=== PATIENT | female | born 1990 | race African-American/Black ===

== ENCOUNTER 2018-06-05 14:36 | Inpatient (IN) | payer SELFPAY ==
[2018-06-05 15:29] LABS: Hemoglobin 5.2 g/dL (12.0-16.0); Mean Corpuscular HGB CONC 29.7 g/dL (32.0-36.0); Mean Corpuscular Volume 60.5 fL (78.0-98.0); Mean Platelet Volume 10.4 fL (7.4-10.4); Platelet Count 356 thou/uL (130-400); RBC Distribution Width 16.5 % (11.5-14.5); White Blood Cell (WBC) Count 4.1 thou/uL (4.8-10.8)
[2018-06-05 15:47] LABS: #Basophils 0.1 thou/uL (0.0-0.2); #Eosinphils 0.1 thou/uL (0.0-0.7); #Lymphocytes 1.3 thou/uL (1.20-3.40); #Monocytes 0.4 thou/uL (0.11-0.59); #Neutrophils 2.2 thou/uL (1.40-6.50); %Basophils 2.4 % (0.0-1.0); %Eosinophils 1.7 % (0.0-10.0); %Lymphocytes 32.3 % (21.0-51.0); %Monocytes 10.6 % (0.0-10.0); Anisocytosis SLIGHT = 6-15 cells (100X) (0-5/hpf); Elliptocytes SLIGHT = 2-5 cells (100X) (0-1/hpf); Hypochromia SLIGHT = 6-15 cells (100X) (0-5/hpf); MDiff Complete? YES; Microcytosis MODERATE=15-30 cells (100X) (0-5/hpf); Platelet Morphology Comment Appears Adequate; Poikilocytosis SLIGHT = 6-15 cells (100X) (0-5/hpf); Polychromasia SLIGHT = 2-3 cells (100X) (0-2/hpf)
[2018-06-05 15:48] LABS: ALT (SGPT) 10 U/L (8-55); AST (SGOT) 18 U/L (5-34); Alkaline Phosphatase 64 U/L (40-150); Anion Gap 11 mmol/L (10-20); BUN (Urea Nitrogen) 6 mg/dL (7.0-18.7); Bilirubin, Total 0.3 mg/dL (0.2-1.2); Calc. Creatinine Clearance 0 mL/min (70-130); Calcium 9.2 mg/dL (7.8-10.44); Carbon Dioxide 27 mmol/L (22-29); Chloride 106 mmol/L (98-107); Estimated GFR-MDRD 90; Globulin 2.9 g/dL (2.4-3.5); Glucose 94 mg/dL (70-105); Potassium 3.9 mmol/L (3.5-5.1); Protein, Total 6.9 g/dL (6.0-8.3); Sodium 140 mmol/L (136-145)
[2018-06-05] MEDS ORDERED: Ondansetron ODT 4 MG TAB PO PRN (16:12)
[2018-06-05] MEDS ORDERED: Ondansetron PF 4 MG/2 ML Vial IVP PRN (16:12)
[2018-06-05] MEDS ORDERED: Acetaminophen 325 MG TAB PO PRN (16:12)
[2018-06-05] MEDS ORDERED: Zolpidem Tartrate 5 MG TAB PO PRN (16:12)
[2018-06-05 17:06] LABS: Bilirubin Negative (Negative); Blood, Urine Negative (Negative); Clarity CLEAR (Clear); Glucose, Urine (Dipstick) Negative (Negative); Leukocyte Negative (Negative); Nitrite Negative (Negative); Protein, Urine (Dipstick) Negative (Neg-Trace); Specific Gravity, Urine 1.018 (1.002-1.036); Urobilinogen 0.2 mg/dL (0.2-1.0)
[2018-06-05 17:09] LABS: Pregnancy Test - Urine (BHCG) Negative (Negative); Pregu Control Background? CLEAR/WHITE (CLR/WHITE); Pregu Control Bar Appear? YES (CONTROL BAR); Specific Gravity 1.018 (1.002-1.036)
--- NOTE | 2018-06-05 17:10 | ULT ---
TRANSABDOMINAL AND ENDOVAGINAL PELVIC ULTRASOUND: 06/05/18 HISTORY: Menorrhagia. Heavy bleeding. LMP 04/15/18. Patient has not been sexually active since bleeding began. Patient is not on any control. COMPARISON: None. TECHNIQUE: Transabdominal and endovaginal imaging of the pelvis is performed. Ovaries are interrogated with segovia scale, color flow, doppler imaging and spectral waveform analysis. FINDINGS: Uterus is identified measuring 4.8 x 4.1 x 7.8 cm. No myometrial masses. Heterogeneous, thickened en dometrium measuring 1.3 cm. There is no evidence of a gestational sac, yolk sac or pole. Naboth marie cyst is noted. Right ovary has a normal echotexture with a follicle present, measuring 1 cm. Overall, the right ovar y measures 1.9 x 2.0 x 1.2 cm. There are multiple cysts in the left ovary. The largest cyst may have a fluid debris fill level measu ring 2.9 x 1.4 x 2.2 cm. Second smaller cyst measures 1.3 x 1.3 x 1.5 cm. Overall, the left ovary adam sures 2.7 x 3.3 x 3.4 cm. There is no free fluid. OVARIAN DOPPLER: Vascular flow to both ovaries. IMPRESSION: 1. Heterogeneous, thickened endometrium. No sonographic evidence of a gestational sac, yolk sac or pole. Correlate with serum beta HCG. 2. Bilateral ovarian cyst. Largest cyst in the left ovary is slightly complex. Followup ultrasou nd in 8 weeks is recommended to ensure resolution. POS: DEEDEE
[2018-06-05 18:03] LABS: BHCG - Serum Negative (NEGATIVE); Pregs Control Background? CLEAR/WHITE (CLR/WHITE); Pregs Control Bar Appear? YES (CONTROL BAR)
[2018-06-05] MEDS: Famotidine 20 MG TAB PO SCH (20:46)
--- NOTE | 2018-06-06 02:30 | HP ---
CHIEF COMPLAINT: Vaginal bleeding and symptomatic anemia. HISTORY OF PRESENT ILLNESS: This is a 27-year-old nulligravid female who presented to the emergency department with weakness and dizziness. She reports that she has irregular cycles and very heavy cycles. She was bleeding heavily yesterday, but this is improved today. However, due to her symptoms of dizziness, she decided to come in and be evaluated. She has been evaluated for this before and started on control pills, but did not like the side effects and stopped taking them. She has not ever needed a blood transfusion prior to this. REVIEW OF SYSTEMS: Negative for head, eyes, ears, nose, throat, cardiovascular, respiratory, GI, , neuro, psych, musculoskeletal, skin, or constitutional symptoms other than mentioned above. PAST MEDICAL HISTORY: None. PAST SURGICAL HISTORY: None. MEDICATIONS: None. ALLERGIES: NO KNOWN DRUG ALLERGIES. SOCIAL HISTORY: Negative for tobacco, alcohol, or drug abuse. 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 FAMILY HISTORY: Negative for breast, ovary, uterine, or colon cancer. PHYSICAL EXAMINATION: VITAL SIGNS: Blood pressure 118/59, pulse 88, respiratory rate 16, temperature 98.3, O2 saturation 98% on room air. GENERAL: Awake, alert, in no acute distress. CHEST: Nonlabored breathing. ABDOMEN: Soft, nontender to palpation. PELVIC: Deferred. LABORATORY DATA: Hemoglobin 5.2, hematocrit 17.6. test negative. Labs otherwise unremarkable. IMAGING: Transvaginal ultrasound performed by Radiology revealing a heterogeneous thickened endometrium measuring 1.3 cm, bilateral ovarian cyst, largest is 2.9 cm. No free fluid in the pelvis. ASSESSMENT AND PLAN: A 27-year-old nulligravid female with abnormal uterine bleeding and symptomatic anemia. The patient will be admitted for transfusion of blood products. Following this, she will be discharged to follow up at the [facility] for further workup and management. I did start her on Provera 10 mg daily to be started now and taken until she is seen in the clinic. Job ID: [id number] MTDD
[2018-06-06 07:59] VITALS: TEMP 98.1
[2018-06-06] MEDS: Famotidine 20 MG TAB PO SCH (08:33)
[2018-06-06 08:35] LABS: Hemoglobin 7.5 g/dL (12.0-16.0); Mean Corpuscular HGB CONC 31.6 g/dL (32.0-36.0); Mean Corpuscular Hemoglobin 21.6 pg (27.0-31.0); Mean Corpuscular Volume 68.3 fL (78.0-98.0); Mean Platelet Volume 9.7 fL (7.4-10.4); Platelet Count 357 thou/uL (130-400); RBC Distribution Width 24.2 % (11.5-14.5); White Blood Cell (WBC) Count 4.3 thou/uL (4.8-10.8)
[2018-06-06] MEDS ORDERED: medroxyPROGESTERone Acetate 5 MG TAB PO SCH (09:00)
--- NOTE | 2018-06-06 09:52 | PDOC.EVN ---
Event Note - Event Note Event Note: Now s/p 2 units PRBCs BP= 122/76, P= 78. Hgb returns 7.5. Has Dc orders by Dr. Lennon, rx. for Fe and Provera on chart. Has referral to [facility] for followup.
[2018-06-06 12:01] VITALS: BP 139/78
--- NOTE | 2018-06-07 23:37 | DIS ---
DATE OF ADMISSION: 06/05/2018 DATE OF DISCHARGE: 06/06/2018 DIAGNOSES: 1. Abnormal uterine bleeding. 2. Symptomatic anemia. PROCEDURES: 1. Transfusion of 2 units packed red blood cells. 2. Transvaginal Ultrasound HOSPITAL COURSE: The patient presented to the emergency department for dizziness with a longstanding history of abnormal uterine bleeding. She has moderate bleeding at this time. She has never required transfusions prior to this. She received 2 units of packed red blood cells with improvement of her symptoms. Her hemoglobin improved from 5.2 to 7.5, and she was discharged home. DISCHARGE MEDICATIONS: Provera 10 mg daily for 10 days. FOLLOWUP: [facility] for further evaluation and management. DIET: Regular. ACTIVITIES: As tolerated. INSTRUCTIONS: Call or return to clinic as needed. Job ID: [id number] MTDD
== END 2018-06-06 11:20 | disposition home or self-care (01) | DRG 761 ==
LOC: ERS 14:36 → 3SE 16:12
PROVIDERS: ADMIT Obstetrics & Gynecology; ATTEND Obstetrics & Gynecology
PROC: 30233N1 Transfusion of Nonautologous Red Blood Cells into Peripheral Vein, Percutaneous Approach (ICD-10-PCS; principal; 2018-06-05)
DX: N93.9 Abnormal uterine and vaginal bleeding, unspecified (principal); D64.9 Anemia, unspecified; N83.202 Unspecified ovarian cyst, left side; N83.201 Unspecified ovarian cyst, right side; R93.89 Abnormal findings on diagnostic imaging of other specified body structures
CPT/HCPCS: 36415; 36430; 76856; 80053; 81003; 81025; 84703; 85025; 85027; 85060; 86850; 86900; 86901; 96360; P9016

== ENCOUNTER 2018-07-03 10:31 | Observation (INO) | payer SELFPAY ==
[2018-07-03 11:13] LABS: #Basophils 0.1 thou/uL (0.0-0.2); #Eosinphils 0.1 thou/uL (0.0-0.7); #Lymphocytes 1.3 thou/uL (1.20-3.40); #Monocytes 0.3 thou/uL (0.11-0.59); #Neutrophils 3.7 thou/uL (1.40-6.50); %Basophils 1.8 % (0.0-1.0); %Lymphocytes 23.8 % (21.0-51.0); %Monocytes 6.3 % (0.0-10.0); %Neutrophils 67.1 % (42.0-75.0); Hemoglobin 6.6 g/dL (12.0-16.0); Mean Corpuscular HGB CONC 30.3 g/dL (32.0-36.0); Mean Corpuscular Volume 66.1 fL (78.0-98.0); RBC Distribution Width 22.1 % (11.5-14.5); Red Blood Cell (RBC) Count 3.32 mill/uL (4.20-5.40); White Blood Cell (WBC) Count 5.4 thou/uL (4.8-10.8)
[2018-07-03 11:37] LABS: Elliptocytes SLIGHT = 2-5 cells (100X) (0-1/hpf); Hypochromia MODERATE=16-30 cells (100X) (0-5/hpf); MDiff Complete? YES; Mean Platelet Volume 10.5 fL (7.4-10.4); Microcytosis MODERATE=15-30 cells (100X) (0-5/hpf); Platelet Count 341 thou/uL (130-400); Platelet Morphology Comment Appears Adequate; Polychromasia SLIGHT = 2-3 cells (100X) (0-2/hpf); Schistocytes SLIGHT = 2-5 cells (100X) (0-1/hpf); Tear Drops SLIGHT = 2-5 cells (100X) (0-1/hpf)
--- NOTE | 2018-07-03 13:32 | PDOC.FPRHP ---
- History of Present Illness Chief Complaint: Fatigue History of Present Illness: 27 year old female presents for fatigue. Patient has history of abnormal uterine bleeding. She was seen by Dr. Lennon at clinic this AM. Her bleeding has slowed down, so no measures were taken at that visit. Patient states that she felt very fatigued which is similar to how she felt during the last hospitalization less than a month ago when she was seen for the same problem. She required blood transfusion at that time. She opted to come to the ED for evaluation and to get her blood count checked. Patient states she has had prolonged bleeding since just after starting menses. She was on BC pills to regulate periods from 2004 through 2012. She opted to come off of control due to weight changes and problems with BP. She did not get put on medication after that point, although options have been discussed with her to include Mirena IUD. Patient states she has been bleeding from end of May until now. Even with the Provera, the bleeding has persisted, but it has lessened. She states she goes through appx 5 pads a day, but it will vary. She denies any family history of bleeding disorders. Patient states that other than the vaginal bleeding, she has not experienced any problems with bleeding. During the last hospitalization, patient had TVUS which showed heterogeneous, thickened endometrium. There was no sonographic evidence of a gestational sac, yolk sac or pole. There were noted to be bilateral ovarian cysts. The largest cyst in the left ovary is slightly complex. Follow up ultrasound in 8 weeks was recommended. Patient was admitted for blood transfusion and discharged on Provera 10 mg daily until her follow up appt with [facility]. - Allergies/Adverse Reactions Allergies Allergy/AdvReac Type Severity Reaction Status Date / Time No Known Allergies Allergy Verified 07/03/18 14:59 - Home Medications Medication Instructions Recorded Confirmed Type medroxyPROGESTERone Acetate 10 mg PO DAILY 10 Days #30 tab 06/06/18 07/03/18 Rx [Provera] - History PMHx: Abnormal uterine bleeding PSHx: None FHx: Negative for breast, ovary, uterine, or colon cancer. Denies family history of bleeding or clotting disorders. Social: Denies tobacco, alcohol, or drug use. 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 - Review of Systems General: denies: fever/chills, weight/appetite/sleep changes Eyes: denies: vision changes ENT: denies: nasal congestion, rhinorrhea Respiratory: reports: shortness of breath (with exertion). denies: cough, congestion Cardiovascular: denies: chest pain, palpitation, edema Gastrointestinal: denies: nausea, vomiting, diarrhea, abdominal pain Genitourinary: denies: dysuria, polyuria Skin: denies: rashes, lesions Musculoskeletal: denies: pain, tenderness Neurological: reports: weakness. denies: numbness, syncope Psychological: denies: anxiety, depression - Vital signs BP: 127/80 HR: 74 RR: 16 Tmax: 98.6F - Physical Exam Constitutional: NAD, awake, alert and oriented, well developed HEENT: EOMI, grossly normal vision, grossly normal hearing Neck: supple -Neck: Pale conjunctiva Heart: RRR, normal S1/S2, no murmurs/rubs/gallops Lungs: CTAB, no respiratory distress, no wheezing Abdomen: soft, non-tender, bowel sounds present Musculoskeletal: normal tone, ROM grossly normal Neurological: no focal deficit, CN II-XII intact Skin: no rash/lesions, good turgor, capillary refill <2 seconds Heme/Lymphatic: no purpura, no petechia Psychiatric: normal mood and affect, good judgment and insight, intact recent and remote memory FMR H&P: Results - Labs Result Diagrams: 07/04/18 04:31 Lab results: WBC 5.4 thou/uL (4.8-10.8) 07/03/18 10:55 Hgb 6.6 g/dL (12.0-16.0) L 07/03/18 10:55 Hct 21.9 % (36.0-47.0) L 07/03/18 10:55 MCV 66.1 fL (78.0-98.0) L 07/03/18 10:55 Plt Count 341 thou/uL (130-400) 07/03/18 10:55 Neutrophils % 67.1 % (42.0-75.0) 07/03/18 10:55 FMR H&P: A/P - Problem List (1) Abnormal uterine bleeding (AUB) Current Visit: No Status: Acute Code(s): N93.9 - ABNORMAL UTERINE AND VAGINAL BLEEDING, UNSPECIFIED (2) Symptomatic anemia Current Visit: No Status: Acute Code(s): D64.9 - ANEMIA, UNSPECIFIED - Plan 27 year old female with hx AUB presents with fatigue and weakness 1. Symptomatic anemia - 2/2 AUB, associated with weakness, fatigue, exertional dyspnea - Provera 10 mg BID - 2u pRBC's - AM CBC - Monitor for additional signs/symptoms of anemia 2. AUB - Since menses - Will evaluate for underlying bleeding disorder to include VWD - Recommend OCP's or IUD; patient will need to follow up with her JUNIOR DATABASE ADMINISTRATOR within the next week. - TVUS on 06/2018 showed heterogeneous, thickened endometrium with no evidence of gestational sac, yolk sac, or pole. Bilateral ovarian cysts were noted. Largest cyst was in left ovary and was noted to be slightly complex. 8 week follow up was recommended. 3. Ovarian cysts - Noted on TVUS in 06/2018 - Bilateral. Largest cyst in left ovary noted to be slightly complex. - Advised patient of recommendation to for repeat sono in 8 weeks, but no intervention needed - Patient requesting to talk to JUNIOR DATABASE ADMINISTRATOR. Will ask JUNIOR DATABASE ADMINISTRATOR to have conversation with patient regarding cysts. Dispo: Stable. Plan for d/c home tomorrow after repeat CBC. Plan discussed with Dr. Plata and patient seen and evaluated by Dr. Boni Wagner, DO PGY-2 FMR H&P: Upper Level - Plan Date/Time: 07/03/18 6869 I, [], have evaluated this patient and agree with findings/plan as outlined by grad intern resident. Pertinent changes/additions are listed here. Addendum - Attending - Attending Attestation Date/Time: 07/04/18 0804 I personally evaluated the patient and discussed the management with Dr. Wagner yesterday afternoon at time of admission. I agree with the History, Examination, Assessment and Plan documented above with any addition or exceptions noted below.
[2018-07-03] MEDS ORDERED: Ondansetron ODT 4 MG TAB PO PRN (14:37)
[2018-07-03] MEDS ORDERED: Acetaminophen 325 MG TAB PO PRN (14:37)
[2018-07-03 15:45] LABS: PTT 30.8 SEC (22.9-36.1); Prothrombin Time 13.7 SEC (12.0-14.7)
[2018-07-03 16:02] LABS: BHCG - Serum Negative (NEGATIVE); Pregs Control Background? CLEAR/WHITE (CLR/WHITE); Pregs Control Bar Appear? YES (CONTROL BAR)
[2018-07-03 16:17] LABS: Thyroid Stimulating Hormone 0.6452 uIU/mL (0.35-4.94)
[2018-07-03 16:23] VITALS: BMI 27.6
[2018-07-03 16:27] LABS: Factor VIII Test 328.2 % ACTIVE (56-157)
[2018-07-03] MEDS: medroxyPROGESTERone Acetate 5 MG TAB PO SCH (19:58)
[2018-07-03] MEDS ORDERED: medroxyPROGESTERone Acetate 5 MG TAB PO SCH (21:00)
[2018-07-04 05:32] LABS: #Basophils 0.1 thou/uL (0.0-0.2); #Eosinphils 0.2 thou/uL (0.0-0.7); #Monocytes 0.6 thou/uL (0.11-0.59); %Basophils 0.9 % (0.0-1.0); %Eosinophils 2.3 % (0.0-10.0); %Lymphocytes 28.8 % (21.0-51.0); %Monocytes 8.9 % (0.0-10.0); %Neutrophils 59.1 % (42.0-75.0); Anisocytosis SLIGHT = 6-15 cells (100X) (0-5/hpf); Hemoglobin 8.4 g/dL (12.0-16.0); Hypochromia SLIGHT = 6-15 cells (100X) (0-5/hpf); MDiff Complete? YES; Mean Corpuscular HGB CONC 31.3 g/dL (32.0-36.0); Mean Corpuscular Hemoglobin 22.8 pg (27.0-31.0); Mean Corpuscular Volume 72.7 fL (78.0-98.0); Mean Platelet Volume 10.7 fL (7.4-10.4); Microcytosis SLIGHT = 6-15 cells (100X) (0-5/hpf); Platelet Count 295 thou/uL (130-400); RBC Distribution Width 23.1 % (11.5-14.5); Red Blood Cell (RBC) Count 3.71 mill/uL (4.20-5.40); White Blood Cell (WBC) Count 6.8 thou/uL (4.8-10.8)
--- NOTE | 2018-07-04 06:36 | PDOC.FM ---
- Subjective Subjective: No overnight events. Reports fatigue, lightheadedness, presyncope have resolved. Reports cramping and "coccyx" pain. Reports her bleeding has become heavier since admission. Worried about follow up as finances are a concern. - Objective MAR Reviewed: Yes Vital Signs & Weight: Vital Signs (12 hours) Temp Pulse Resp BP BP Pulse Ox 07/04/18 02:54 98.5 F 74 18 127/76 100 07/04/18 00:00 98.8 F 85 12 109/55 L 98 07/03/18 19:28 99.1 F 103 H 16 104/55 L 96 Weight Weight 82.299 kg I&O: 07/02/18 07/03/18 07/04/18 06:59 06:59 06:59 Intake Total 1090 Output Total 1100 Balance -10 Result Diagrams: 07/04/18 04:31 Phys Exam - Physical Examination Constitutional: NAD HEENT: moist MMs Neck: supple Respiratory: no wheezing, clear to auscultation bilateral Cardiovascular: RRR Gastrointestinal: soft, non-tender, positive bowel sounds Musculoskeletal: no edema Neurological: moves all 4 limbs Psychiatric: normal affect, A&O x 3 Skin: no rash Dx/Plan (1) Abnormal uterine bleeding (AUB) Code(s): N93.9 - ABNORMAL UTERINE AND VAGINAL BLEEDING, UNSPECIFIED Status: Acute (2) Symptomatic anemia Code(s): D64.9 - ANEMIA, UNSPECIFIED Status: Acute - Plan Plan: 27 year old female presents with symptomatic anemia 2/2 AUB Symptomatic anemia - 2/2 AUB, associated with weakness, fatigue, exertional dyspnea - Provera 10 mg BID - s/p 2u pRBC's - Hgb 6.6-> 8.4 AUB - VWF pending - Recommend OCP's or IUD; pt to f/u with [facility] within 1 week - TVUS 06/2018: heterogeneous, thickened endometrium. No evidence of gestational sac, yolk sac, or pole. Bilateral ovarian cysts. Largest cyst- left ovary slightly complex. Rec 8 week follow up. - CM consult, pt worried about finances due to cost Bilateral ovarian cysts - On TVUS 06/2018 - Largest cyst in left ovary noted to be slightly complex. - Recommendation repeat sono in 8 weeks Code Status: FULL DVT ppx: SCDs PCP: CALIXTO Ortiz Addendum - Attending - Attending Attestation Date/Time: 07/04/18 4302 I personally evaluated the patient and discussed the management with Dr. Pizano. I agree with the History, Examination, Assessment and Plan documented above with any addition or exceptions noted below. The patient is s/p 2 units prbc. Anemia/hemoglobin is stable. She was seen by woodworking machine setter as well and pt will need to f/u outpt for further treatment of bleeding. Will d/c home.
[2018-07-04] MEDS: medroxyPROGESTERone Acetate 5 MG TAB PO SCH (07:42)
[2018-07-04] MEDS ORDERED: Naproxen 500 MG TAB PO SCH (08:45)
[2018-07-04 10:05] LABS: Platelet Count 336 thou/uL (130-400)
[2018-07-04 10:17] LABS: EPI 93 SEC (67-199)
[2018-07-04 10:20] LABS: Iron 25 ug/dL (50-170); Iron Binding Capacity, Total 353 mcg/dL (265-497)
[2018-07-04 12:30] VITALS: BP 122/72; TEMP 99.1
[2018-07-04] MEDS ORDERED: medroxyPROGESTERone Acetate 5 MG TAB PO SCH ×2 (15:00→21:00)
--- NOTE | 2018-07-04 20:38 | CON ---
DATE OF CONSULTATION: 07/04/2018 CONSULTING PHYSICIAN: Sergio Gu MD. REASON FOR CONSULTATION: Heavy vaginal bleeding. HISTORY OF PRESENT ILLNESS: Ms. Maza is a 27-year-old black, G0, with a long history of irregular periods, who was admitted for heavy vaginal bleeding. On admission, she was found to have a hemoglobin of 6 and she has been transfused with 2 units of red blood cells. I have been consulted to talk with her about management moving forward. Of note is the fact that she had seen Dr. Lennon at [facility] and he discussed an IUD with her. At the present time, she is concerned regarding the finances of this. The patient was admitted approximately a month ago with similar bleeding and she was sent home on Provera. PAST GYNECOLOGIC HISTORY: The patient states that she began having periods of 12 to 14. The patient states that her periods have always been irregular. She has used Depo-Provera and control pills in the past. She is uncertain whether the control pills caused elevated blood pressure for her. PAST MEDICAL HISTORY: None. PAST SURGICAL HISTORY: None. CURRENT MEDICATIONS: Include dietary supplements, ingredients unknown. ALLERGIES: NO KNOWN ALLERGIES. SOCIAL HISTORY: Denies tobacco, alcohol, or drug use. FAMILY HISTORY: Denies bleeding disorders in the family. REVIEW OF SYSTEMS: Denies nausea, vomiting, fever, chills, headaches, or weakness at the current time. PHYSICAL EXAMINATION: VITAL SIGNS: This morning, her blood pressure is 122/77. Her pulse is 77. Her respirations are 16. Her temperature is 98.2, and she has 99% O2 saturation on room air. GENERAL: She is pleasant and in no acute distress. She answers questions easily. ABDOMEN: Soft and nontender. There is no guarding or rebound. PELVIC: Examination shows minimal blood in the vagina. Her uterus is normal in size and no discrete adnexal masses are noted. LABORATORIES: Her blood count was repeated this morning and her hemoglobin is 8.4, her hematocrit is 26.9, and her platelets were 295,000. Ultrasound done last admission approximately a month ago showed a uterus that was normal in size, but there were multiple small cysts on both ovaries. The endometrium was thickened. ASSESSMENT: Dysfunctional uterine bleeding, refractory to Provera. PLAN: In view of the patient's stable status at the present time, it is likely that she will be discharged by the medicine service. Consideration should be made of putting her on either low-dose control pills with careful observation of her blood pressure or perhaps obtaining an IUD for her both with the intent of helping her with her menorrhagia. The risks and benefits of both of these modalities were discussed with her and she is currently talking with financial planning here regarding being able to go to the clinic to have this done. Job ID: [id number]
--- NOTE | 2018-07-05 01:25 | DIS ---
DATE OF ADMISSION: 07/03/2018 DATE OF DISCHARGE: 07/04/2018 RESIDENT: Tesha Pizano, PGY-1. ADMITTING ATTENDING: Bladimir Plata MD. DISCHARGE ATTENDING: Sherlyn Hameed MD. CONSULTS: COMPO CASTER. PROCEDURES: None. PRIMARY DIAGNOSIS: Symptomatic anemia secondary to abnormal uterine bleeding. SECONDARY DIAGNOSES: 1. Abnormal uterine bleeding. 2. Bilateral ovarian cysts. DISCHARGE MEDICATIONS: 1. Provera 10 mg b.i.d. 2. Tylenol 650 mg q.4 hours p.r.n.. HISTORY OF PRESENT ILLNESS/HOSPITAL COURSE: Ms. Maza is a 27-year-old female with past medical history of abnormal uterine bleeding requiring transfusions, presenting with fatigue, found to have hemoglobin of 6.6. She received 2 units packed red blood cells with a discharge hemoglobin of 8.4. She has never been . She has never had a regular period. She was on control pills from 2004 to 2012 with improvement in heavy menses, but stopped them due to weight gain and reportedly elevated blood pressures. There were no elevated BPs during hospitalization. She reports she has been bleeding heavily since May and has been seeing Dr. Lennon outpatient, who started her on Provera 10 mg b.i.d. She reports the bleeding has persisted despite taking Provera as directed. It has lessened in amount close to approximately 5 pads per day. No family history of bleeding disorders. During her last hospitalization on 06/05/2018, she was admitted by COMPO CASTER service had a transvaginal ultrasound performed that showed heterogeneous thickened endometrium. No evidence of gestational sac, yolk sac, or pole. There were noted to be bilateral ovarian cysts. The largest cyst in the left ovary is slightly complex, recommended 8- week followup ultrasound. The patient received 2 units of packed red blood cells at that time. This hospitalization test negative. Vital signs were stable throughout the hospitalization. No elevated blood pressures or tachycardia. Initial vital signs; 127/80, heart rate 74. After transfusion, she had resolution in her symptoms of weakness, fatigue, and dizziness with standing. It is likely that her abnormal uterine bleeding is secondary to polycystic ovarian syndrome. She would recommend from low-dose OCPs under direct supervision of a provider outpatient or Mirena IUD. Case Management was consulted due to financial concerns for followup and acquisition of IUD. von Willebrand factor is pending. Factor VIII activity is 328.2. INR , PT, and PTT are normal. Iron studies consistent with iron deficiency anemia. Platelet function test is normal. DISPOSITION: Stable. DISCHARGE INSTRUCTIONS: 1. Location: Home. 2. Diet: Regular. 3. Activity: No restrictions. 4. Followup: Follow up with Dr. Pizano on 07/12 at 8:20 a.m. Job ID: [id number] MTDD
== END 2018-07-04 15:13 | disposition home or self-care (01) ==
LOC: ERS 10:31 → ERHOLD 12:05 → 2SW 14:31
PROVIDERS: ADMIT Family Medicine; ATTEND Family Medicine
DX: N93.8 Other specified abnormal uterine and vaginal bleeding (principal); D50.0 Iron deficiency anemia secondary to blood loss (chronic); N83.202 Unspecified ovarian cyst, left side; N83.201 Unspecified ovarian cyst, right side; Z79.899 Other long term (current) drug therapy
CPT/HCPCS: 36415; 36430; 82728; 83540; 83550; 84443; 84703; 85025; 85060; 85240; 85245; 85246; 85576; 85610; 85730; 86850; 86900; 86901; 96360; 96361; G0378; P9016